=== PATIENT | male | born 1985 | race Two or more races ===

== ENCOUNTER → 2021-02-13 | Outpatient (CLI) | payer MEDICAID, OTHER ==
[~2021-02-13] VITALS: Ht 175.3 cm; Wt 88.5 kg
[2021-02-13] VITALS (7 sets, daily range): BP systolic 104–125; BP diastolic 52–78
[~2021-02-13] MED LIST: REGENERON 1200mg/250ml NS 250 ML IV ONE
== END | disposition home or self-care (01) ==
LOC: ER 08:37
PROVIDERS: ATTEND Internal Medicine
DX: U07.1 COVID-19 (principal); R53.83 Other fatigue; R53.1 Weakness; R07.89 Other chest pain; R05.9 Cough, unspecified
CPT/HCPCS: J7050; M0243; Q0244